=== PATIENT | female | born 1995 | race Caucasian/White ===

== ENCOUNTER 2016-10-20 23:49 | Emergency (ER) | payer OTHER ==
[~2016-10-20] VITALS: Ht 160 cm; Wt 74.8 kg
[~2016-10-20 23:49] MED LIST: FUROSEMIDE PO; PHENTERMINE PO; POTASSIUM PO
[2016-10-21] VITALS: BP 148/96
--- NOTE | 2016-10-21 02:49 | NUR ---
PATIENT TO ER BED 4
--- NOTE | 2016-10-21 02:59 | NUR ---
PATIENT BEING EVALUATED BY DR. AYALA.
[2016-10-21 03:20] VITALS: BP 128/80
== END 2016-10-21 03:20 | disposition home or self-care (01) ==
LOC: MED 23:49
DX: R07.89 Other chest pain (principal)
CPT/HCPCS: 93005; 99283